=== PATIENT | male | born 1965 | race Two or more races ===

== ENCOUNTER → 2017-05-05 | Outpatient (CLI) | payer BC ==
--- NOTE | 2017-05-05 14:20 | KCIC ---
KNEE RIGHT 3V History: Right medial knee pain for 4 weeks Comparison: None. Findings: 3 views right knee are submitted. There is no significant joint effusion. No acute fracture or dislocation is identified. There is mild narrowing of the medial compartment joint space. Impression: 1. No acute osseous abnormality is identified. There is mild osteoarthritic change. Electronically signed by: Shan Trinh MD (05/05/2017 2:17 PM) [id number]
== END | disposition home or self-care (01) ==
LOC: KCIC 10:42
PROVIDERS: ATTEND Family Medicine
DX: M17.11 Unilateral primary osteoarthritis, right knee (principal)
CPT/HCPCS: 73562

== ENCOUNTER → 2021-08-25 | Outpatient (CLI) | payer BC ==
--- NOTE | 2021-08-25 16:10 | RAD ---
EXAMINATION: MRI RIGHT LOWER EXTREMITY JOINT WITHOUT INDICATIONS: Right knee pain. TECHNIQUE: Multiplanar multisequence MRI of the right knee was obtained without contrast. COMPARISON: Right knee radiograph 04/03/2021 FINDINGS: MENISCI: There is a complex tear of the medial meniscus extending from the posterior root-horn junct ion to the body-anterior horn junction. This results in 8 x 5 x 3 mm meniscal fragment flipped into t he superior medial recess. The body of the medial meniscus is blunted and there is 3-4 mm extrusion. Mild increased signal in the posterior root. The lateral meniscus is intact. LIGAMENTS: ACL PCL are intact. LCL complex including popliteus tendon are intact. There is thickenin g of the proximal MCL with surrounding soft tissue edema. EXTENSOR MECHANISM: The quadriceps and patellar tendons are intact. Fat pads are normal. Retinacula are intact. BONES AND CARTILAGE: There is widespread deep partial and full-thickness cartilage loss throughout t he weightbearing medial femoral condyle and deep partial-thickness cartilage loss along the periphera l medial tibial plateau with mild subchondral marrow edema. Lateral compartment cartilage is intact. There is superficial and deep partial-thickness cartilage loss along the medial patellar facet and me robin ridge of the patella with small subchondral cysts. Mild superficial partial-thickness cartilage loss at the trochlear groove. No acute fracture. Background marrow signal is normal. OTHER: Large joint effusion. Trace leaking Lorenzana cyst. Mild diffuse subcutaneous edema. Muscles are intact. IMPRESSION: 1. Complex tear of the medial meniscus extending from the posterior root-horn junction through the sincere dy-anterior horn junction. There is a displaced meniscal flap in the superior medial recess along the body. 2. MCL sprain. 3. Deep partial and full-thickness cartilage loss in the medial compartment. Milder superficial and d eep partial-thickness cartilage loss in the patellofemoral compartment. Intact lateral compartment ca rtilage. 4. Large joint effusion. Electronically signed by: Siomara Peck MD (08/25/2021 4:08 PM) [id number]
== END ==
LOC: MRI 10:41
PROVIDERS: ATTEND Orthopaedic Surgery
DX: S83.232A Complex tear of medial meniscus, current injury, left knee, initial encounter (principal); S83.411A Sprain of medial collateral ligament of right knee, initial encounter; M25.461 Effusion, right knee; R60.0 Localized edema; X58.XXXA Exposure to other specified factors, initial encounter; Y93.89 Activity, other specified; Y92.89 Other specified places as the place of occurrence of the external cause; Y99.8 Other external cause status
CPT/HCPCS: 73721

== ENCOUNTER → 2021-09-23 | Outpatient (CLI) | payer BC ==
[~2021-09-23] MED LIST: ASPI-630 PO; CHOL10004 PO; HYDR-2761 PO; IBUP-1007 PO; LISI1TAB39 PO; SIMV20TA18 PO; TRAM50TA PO
== END ==
LOC: LAB 09:53
PROVIDERS: ATTEND Orthopaedic Surgery
DX: U07.1 COVID-19 (principal); Z01.812 Encounter for preprocedural laboratory examination
CPT/HCPCS: U0003

== ENCOUNTER 2021-09-25 09:06 | Day surgery (SDC) | payer BC ==
[~2021-09-25] VITALS: Ht 174 cm; Wt 91.8 kg
[~2021-09-25 09:06] MED LIST changes: -HYDR-2761 PO
[2021-09-25 09:43] VITALS: BP 196/94
[2021-09-25] MEDS ORDERED: IV RINGERS,LACTATED 1000ML 1,000 ML IV SCH ×2 (10:00→12:00)
[2021-09-25] MEDS ORDERED: HYDR-2761 PO (10:37)
[2021-09-25] MEDS ORDERED: PROPOFOL 10 MG/ML (20ML) VIAL. IV ONE (10:41)
[2021-09-25] MEDS ORDERED: DEXAMETHASONE SOD PHOS 4 MG/ML VIAL ONE (10:41)
[2021-09-25] MEDS ORDERED: LIDOCAINE 1% PF 5 ML VIAL. ONE (10:41)
[2021-09-25] MEDS ORDERED: ONDANSETRON PF 4 MG/2 ML VIAL. ONE (10:41)
[2021-09-25] MEDS ORDERED: BUPIVACAINE-EPI 0.25%-1:200000 MPF 30 ML VIAL. ONE (10:57)
[2021-09-25] MEDS ORDERED: fentaNYL PF VIAL 100 MCG/2 ML VIAL ONE (11:01)
--- NOTE | 2021-09-25 11:26 | PDOC4 ---
OPERATIVE NOTE Date: Date: Sep 25, 2021 Pre-Op Diagnosis: Medial meniscal tear with degenerative joint disease right knee Post-Op Diagnosis: Same Procedure Performed: Right knee arthroscopy with joint debridement partial medial meniscectomy synovectomy Surgeon: Ted Anesthesia Type: General Blood Loss: 20 cc Specimans Obtained: None Findings: See dictation Complications: None MARBELLA CALLE Jr. DO Sep 25, 2021 11:26
[2021-09-25] MEDS ORDERED: PROCHLORPERAZINE 10 MG/2 ML VIAL. ONE (11:47)
[2021-09-25] MEDS ORDERED: MORPHINE SULFATE 2 MG/ML INJ. ONE (11:47)
[2021-09-25] MEDS ORDERED: HYDROmorphone 2 MG/ML INJ. IVP PRN (12:00)
[2021-09-25] MEDS ORDERED: PROCHLORPERAZINE 10 MG/2 ML VIAL. IVP PRN (12:00)
[2021-09-25] MEDS ORDERED: fentaNYL PF VIAL 100 MCG/2 ML VIAL IVP PRN ×2 (12:00)
[2021-09-25] MEDS: MORPHINE SULFATE 2 MG/ML INJ. IVP PRN ×2 (12:04→12:27)
[2021-09-25] MEDS ORDERED: HYDROcodone/APAP 5/325MG 1 TAB TABLET PO ONE (12:30)
--- NOTE | 2021-09-25 12:56 | OP ---
DATE OF SURGERY: 09/25/2021 PREOPERATIVE DIAGNOSIS: Degenerative joint disease with medial meniscal tear, right knee. POSTOPERATIVE DIAGNOSIS: Degenerative joint disease with medial meniscal tear, right knee. PROCEDURE: Right knee arthroscopy with partial medial meniscectomy, joint debridement, synovectomy. SURGEON: Stanton Jean Jr, DO COOLING TOWER TECHNICIAN: Vivek Avalos. ANESTHESIA: General. COMPLICATIONS: None. ESTIMATED BLOOD LOSS: 20 mL. DESCRIPTION OF PROCEDURE: The patient was taken to the operative suite, given a general anesthetic. Right knee was then placed in the knee limon, prepped and draped in a sterile fashion. Inferomedial and inferolateral portals were established. Knee was insufflated with saline. Visualization of the patellofemoral joint noted there to be grade 3 changes on the undersurface of the patella, mostly grade 3 changes to the femoral sulcus. However, in the mid substance of this were approximately 3 mm in width and about 5-6 mm in depth, grade 4; the rest was deep grade 3 however. This was debrided due to the instability. The fragmentation along this area noted. No other abnormalities were noted. After that was debrided back to stable tissue, no loose bodies were noted in the gutters medially or laterally, but upon entering the medial compartment, there were noted to be grade 3 and a large area of grade 4 changes in the femoral side as well as the tibial side of the joint. On the tibial side of the joint, it was the anterior one-third. The entire arc of motion of the femur had grade 3, which was very deep grade 3 and grade 4 changes. This was debrided back to stable tissue. There was noted to be a large complex tear, which was unstable to the posterior horn of the medial meniscus all to the mid substance. This was then debrided using a basket forceps and a shaver, a partial medial meniscectomy was undertaken. This was debrided back to a very stable tissue. This was then irrigated and suctioned dry. All the fragmentation was removed. The ACL and the PCL were probed and noted to be intact and the meniscus, which had been taken care of was also probed and it was noted to be a stable remnant. Upon entering the lateral compartment, the chondral surfaces were completely intact. No abnormalities or problems were noted. No softening was noted at this point. The meniscus was noted to be completely intact without any lesions. This was then thoroughly irrigated, reinspected. No new problems were noted. Therefore, all instruments were then removed. Local was placed in the portal sites. A sterile dressing was applied after the wound was reapproximated in an interrupted fashion using 3-0 nylon. The patient was then taken from the operative bed to the postoperative bed, taken to the PACU in stable condition. ALETA/IRIS/DENISE DR: Mariely TID: [id number]
[2021-09-25 13:00] VITALS: BP 180/90
== END 2021-09-25 13:45 | disposition home or self-care (01) ==
LOC: SURG 09:06
PROVIDERS: ATTEND Orthopaedic Surgery
DX: S83.231A Complex tear of medial meniscus, current injury, right knee, initial encounter (principal); M17.11 Unilateral primary osteoarthritis, right knee; I10 Essential (primary) hypertension; E78.00 Pure hypercholesterolemia, unspecified; K21.9 Gastro-esophageal reflux disease without esophagitis; Z79.82 Long term (current) use of aspirin; Z79.899 Other long term (current) drug therapy; Z98.890 Other specified postprocedural states; X58.XXXA Exposure to other specified factors, initial encounter; Y93.89 Activity, other specified; Y92.89 Other specified places as the place of occurrence of the external cause; Y99.8 Other external cause status
CPT/HCPCS: 29881; 97116; 97161; A4930; J0690; J0780; J1100; J2270; J2405; J2704; J3010; J3490